=== PATIENT | male | born 1995 | race Two or more races ===

== ENCOUNTER 2023-03-17 11:07 | Emergency (ER) | payer OTHER ==
[~2023-03-17] VITALS: Ht 182.9 cm; Wt 104.3 kg
== END 2023-03-17 14:19 | disposition home or self-care (01) ==
LOC: ER 11:07
DX: S61.411A Laceration without foreign body of right hand, initial encounter (principal); S93.401A Sprain of unspecified ligament of right ankle, initial encounter; W05.2XXA Fall from non-moving motorized mobility scooter, initial encounter; Y93.89 Activity, other specified; Y92.89 Other specified places as the place of occurrence of the external cause; Y99.9 Unspecified external cause status